=== PATIENT | female | born 1975 | race Caucasian/White ===

== ENCOUNTER → 2020-11-16 16:25 | Outpatient (CLI) | payer OTHER, SELFPAY ==
--- NOTE | ~2020-11-16 | MM_ITS ---
EXAMINATION: MM screening [facility] BI w antonio HISTORY: Screening mammogram TECHNIQUE: Craniocaudal and mediolateral oblique 3-D tomosynthesis images were obtained and synthetic 2-D images were generated. CAD analysis was submitted and interpreted. COMPARISON: 10/21/2019, 09/03/2018, 08/07/2017 bilateral digital screening mammogram examinations BREAST PARENCHYMAL COMPOSITION: The breasts are heterogeneously dense, which may obscure small masses . FINDINGS: Occasional benign punctate microcalcifications. There is no evidence of suspicious mass, ca lcification, or architectural distortion to suggest malignancy in either breast. There has been no tyler spicious interval change. IMPRESSION: 1. No mammographic evidence of malignancy. 2. Recommend routine screening mammography in one year. BI-RADS Category 2: Benign finding(s). Reviewed, dictated and finalized at location A. N SERVICE AGENT
== END ==
PROVIDERS: PCP Pediatrics; Visit Provider Obstetrics & Gynecology
DX: Z12.31 Encounter for screening mammogram for malignant neoplasm of breast (principal)
CPT/HCPCS: 77063; 77067

== ENCOUNTER → 2021-06-28 17:20 | Outpatient (CLI) | payer OTHER, SELFPAY ==
--- NOTE | ~2021-06-28 | XR_ITS ---
XR thoracic spine 3V DATE: 06/28/2021 18:53 INDICATION: Back pain TECHNIQUE: Standing AP, lateral and swimmer views COMPARISON: None FINDINGS: There is mild mid thoracic dextroscoliosis and mild lower thoracic levoscoliosis. There is mild degenerative spurring of the thoracic spine. No fracture or dislocation or bone destruction. The thoracic pedicles are intact. No paraspinal soft tissue thickening. IMPRESSION: Mild scoliosis and degenerative spurring Reviewed, dictated and finalized at location B.
--- NOTE | ~2021-06-28 | XR_ITS ---
XR lumbar spine 2-3V DATE: 06/28/2021 18:53 INDICATION: Low back pain TECHNIQUE: Standing AP, lateral, coned lateral lumbosacral views COMPARISON: None FINDINGS: There is minimal anterolisthesis at L4-5 due to degenerative change at the apophyseal joint s. Otherwise the lumbar vertebrae are normally aligned. No fracture or bone destruction. The lumbar pedi cles are intact. There is mild degenerative spurring of the lumbar spine. Lumbar an lumbosacral interspaces are relati vely preserved. The sacroiliac joints are intact. IMPRESSION: Grade 1 anterolisthesis at L4-5 due to degenerative change at the apophyseal joints Mild degenerative spurring of the lumbar spine Reviewed, dictated and finalized at location B. IMPRESSION: Grade 1 anterolisthesis at L4-5 due to degenerative change at the a pophyseal joints Mild degenerative spurring of the lumbar spine
== END ==
PROVIDERS: PCP Nurse Practitioner Family; Visit Provider Nurse Practitioner Family
DX: M54.5 Low back pain (principal); M41.9 Scoliosis, unspecified
CPT/HCPCS: 72072; 72100

== ENCOUNTER 2021-09-09 08:15 | Outpatient (CLI) | payer OTHER, SELFPAY ==
[2021-09-09 08:57] LABS: Basophils Absolute Auto 0.1 K/mm3 (0.0-0.1); Basophils Percent Auto 1.2 % (0.2-1.2); Eosinophils Absolute Auto 0.3 K/mm3 (0-0.3); Eosinophils Percent Auto 3.9 % (0-4.4); Hematocrit 42.1 % (37.0-47.0); Hemoglobin 13.9 g/dL (12.0-15.0); Immature Granulocyte Absolute 0.03 K/mm3 (0.00-0.031); Immature Granulocyte Percent A 0.4 % (0-0.5); Lymphocytes Absolute Auto 1.53 K/mm3 (0.9-3.2); Lymphocytes Percent Auto 22.1 % (18.3-44.2); Mean Corpuscular Hemoglobin 31.1 pg (26-34); Mean Corpuscular Volume 94.2 fl (80-100); Mean Platelet Volume 9.8 fl (7.4-10.4); Monocytes Absolute Auto 0.6 K/mm3 (0.1-0.6); Monocytes Percent Auto 8.2 % (2.6-8.5); Neutrophils Absolute Auto 4.5 K/mm3 (1.3-6.7); Neutrophils Percent Auto 64.2 % (45.5-73.1); Platelet Count Result 244 k/mm3 (150-375); Red Blood Count 4.47 M/mm3 (4.2-5.4); Red Cell Distribution Width 13.5 % (11.5-14.5); White Blood Count 6.9 K/mm3 (4.5-10.0)
== END 2021-09-09 08:16 | disposition home or self-care (01) ==
LOC: ANHSURGERY 08:19
PROVIDERS: PCP Pediatrics; Visit Provider Obstetrics & Gynecology
DX: D21.9 Benign neoplasm of connective and other soft tissue, unspecified (principal); Z01.818 Encounter for other preprocedural examination
CPT/HCPCS: 36415; 85025; 86850; 86900; 86901

== ENCOUNTER 2021-09-13 01:02 | Day surgery (SDC) | payer OTHER, SELFPAY ==
[2021-09-05 14:46] VITALS: BMI 26.6
--- NOTE | 2021-09-10 07:41 | PM.IMHP ---
H&P: HPI History of Present Illness Date/Time: 09/10/21 07:41 This 46-year-old multiparous patient admitted for robotic total hysterectomy left salpingo-oophorectomy as as DVT she has uterus uterine fibroids heavy bleeding stress urinary incontinence all refractory to medical therapy risks and benefits reviewed including not exclusive of , aspiration pneumonia bleeding, transfusion, perforation injury to bowel, bladder, ureters, or other internal organs with need for open laparotomy. She received the ACOG handout entitled hysterectomy as well as individually handout. She received the TVT and down. She had all questions answered and asked proceeded Chief Complaint: Enlarged uterus/bleeding/stress urinary incontinence Review of Systems Review of Systems: All systems reviewed & are unremarkable except as noted in HPI and below PMFSH Family History Family History (System 09/20/20 @ 12:13 by Danielle Peters) Other Family history of arthritis Family history of cardiovascular disease Hypertension Social History Social History (System 09/20/20 @ 12:13 by Danielle Peters) Smoking packs per day: 0.5 Smoking cigarettes per day: 10.0 Years smoked: 10 Smoking pack-years: 5.00 Smoking status: Former smoker Tobacco type: cigarettes and e-cigarettes/vaping Smoking end date: 11/30/10 Additional smoking assessment comments: NO LONGER SMOKES CIGARETTES, CURRENTLY VAPES Alcohol intake: current Drinks per week: 1 Substance use: never Substance use type: does not use Spiritual care concerns: No Meds Home Medications and Allergies Home Medications Medication Instructions Recorded Confirmed Type alprazolam 0.25 mg PO PRN PRN 09/05/21 09/05/21 History cholecalciferol (vitamin D3) 125 mcg PO DAILY 09/05/21 09/05/21 History [Vitamin D3] escitalopram oxalate 20 mg PO DAILY 09/05/21 09/05/21 History omeprazole 40 mg PO DAILY 09/05/21 09/05/21 History spironolactone 25 mg PO DAILY 09/05/21 09/05/21 History Allergies Allergy/AdvReac Type Severity Reaction Status Date / Time Penicillins AdvReac Severe GI UPSET-- Unverified 09/05/21 15:08 acetaminophen AdvReac Unknown Gastrointestinal Verified 09/05/21 15:08 [From Darvocet-N] Upset amoxicillin [From Augmentin] AdvReac Unknown Gastrointestinal Verified 09/05/21 15:08 Upset clavulanic acid AdvReac Unknown Gastrointestinal Verified 09/05/21 15:08 [From Augmentin] Upset hydrocodone AdvReac Unknown Gastrointestinal Unverified 09/05/21 15:08 Upset propoxyphene AdvReac Unknown Gastrointestinal Verified 09/05/21 15:08 [From Darvocet-N] Upset BETA LACTAMASE IN AdvReac Unknown Gastrointestinal Uncoded 09/05/21 15:08 Upset Exam Const: General: no acute distress Eyes: General: appearance normal, both eyes and all related structures Neck: Neck: supple and no JVD Thyroid: thyroid normal Resp: Effort & Inspection: normal respiratory effort Auscultation: clear to auscultation bilaterally Cardio: Rate: regular rate Rhythm: regular rhythm GI: Inspection: non-distended GI Palp: Yes Soft to palpation, No Tenderness to palpation present (GI) and No Guarding due to palpation present (GI) Auscultation: normal bowel sounds : Speculum Exam - Vagina: normal appearance of the vagina Speculum Exam - Cervix: normal appearance of the cervix and Cervical os closed Bimanual exam- vagina & uterus: enlarged Skin: General skin exam: no rashes or lesions noted Extrem: General: normal to inspection and no edema Psych: Mental Status: mental status grossly normal Affect: normal affect Assessment and Plan Additional Plan Impression: Enlarged uterus, bleeding, stress urinary incontinence Plan: Robotic total vaginal hysterectomy left salpingo-oophorectomy and tension-free vaginal tape
[2021-09-13] VITALS (9 sets, daily range): BP systolic 91–112; BP diastolic 47–63; PULSE 58–99; RESP 16–22; TEMP 36.2–37; O2SAT 93–100
[2021-09-13] MEDS: LACTATED RINGERS 1,000 ML 30 ML IV CONT ×3 (06:50→10:07)
[2021-09-13] MEDS: KETOROLAC 15 MG/ML VIAL (*BKC) IV PUSH (06:57)
[2021-09-13] MEDS: ACETAMINOPHEN 500 MG TABLET 1000 MG PO (06:57)
--- NOTE | 2021-09-13 07:06 | WPDANESEPPF ---
Anes - Initial Pre Proc Eval Procedure: Operation Date: 09/13/21 07:30 Proposed Procedures p Robotic Assisted Total Vaginal Hysterectomy, Left Salpingo-Oophorectomy - Wiliam Wakefield MD s Tension Free Vaginal Taping - Wiliam Wakefield MD Date/Time: 09/13/21 07:06 Surgeon: Wiliam Wakefield MD Pre Op Diagnosis: enlarge uterus, fibroids, heavy bleeding, JANEL Patient Data Age: 46 Gender: F Height: 1.7 m Weight: 77.1 kg Allergies Allergy/AdvReac Type Severity Reaction Status Date / Time Penicillins AdvReac Severe GI UPSET-- Unverified 09/05/21 15:08 amoxicillin [From Augmentin] AdvReac Unknown Gastrointestinal Verified 09/05/21 15:08 Upset clavulanic acid AdvReac Unknown Gastrointestinal Verified 09/05/21 15:08 [From Augmentin] Upset propoxyphene AdvReac Unknown Gastrointestinal Verified 09/05/21 15:08 [From Darvocet-N] Upset BETA LACTAMASE IN AdvReac Unknown Gastrointestinal Uncoded 09/05/21 15:08 Upset Home Medications Medication Instructions Recorded Confirmed Type alprazolam 0.25 mg PO PRN PRN 09/05/21 09/13/21 History cholecalciferol (vitamin D3) 125 mcg PO DAILY 09/05/21 09/13/21 History [Vitamin D3] escitalopram oxalate 20 mg PO DAILY 09/05/21 09/13/21 History omeprazole 40 mg PO DAILY 09/05/21 09/13/21 History spironolactone 25 mg PO DAILY 09/05/21 09/13/21 History Patient hx anesthesia problems: none Family hx anesthesia problems: none Results Review: All pre-operative results and documents have been reviewed as part of the pre-operative evaluation. [facility] Past Medical History Medical History Anxiety Family History Family History Other Family history of arthritis Family history of cardiovascular disease Hypertension Social History Social History Smoking packs per day: 0.5 Smoking cigarettes per day: 10.0 Years smoked: 10 Smoking pack-years: 5.00 Smoking status: Former smoker Tobacco type: cigarettes and e-cigarettes/vaping Smoking end date: 11/30/10 Additional smoking assessment comments: NO LONGER SMOKES CIGARETTES, CURRENTLY VAPES Alcohol intake: current Drinks per week: 1 Substance use: never Substance use type: does not use Living arrangements: with family Spiritual care concerns: No Anes - Eval Final PreProcedure Day of Procedure 09/13/21 07:06 Patient weight: overweight Heart: regular rate and rhythm Lungs: clear to auscultation Airway: Mallampati scale class II and special considerations poor dentition Neurological: alert and oriented Last oral intake: >/= 8 hours ASA classification: II Emergent: no Anesthetic plan: proceed Anesthesia type and monitoring: general ETT and standard monitoring Results Review: All pre-operative results and documents have been reviewed as part of the pre-operative evaluation. Informed Consent: The patient's anesthetic plan and its attendant risks and benefits were discussed with the patient/family/POA. Questions were solicited and answers provided to the satisfaction of the patient/family/POA.
--- NOTE | 2021-09-13 07:08 | WPDHPUPDATE1 ---
History and Physical Update Update Date/Time: 09/13/21 07:08 History and Physical has been reviewed, including an updated exam of the patient. There are NO changes in the patient's condition. Risks, benefits, and alternatives have been discussed and questions answered. Patient agrees to proceed with procedure.
[2021-09-13] MEDS: SCOPOLAMINE 1.5 MG PATCH TRANSDERM (07:17)
[2021-09-13] MEDS: ceFAZolin 2 GM/D5W 50 ML 2 GM/50 ML BAG IVPB (07:30)
--- NOTE | 2021-09-13 09:35 | W.PM.PROC2 ---
Procedure Note - Detailed Date of Procedure 09/13/21 Pre-op Diagnosis enlarge uterus, fibroids, heavy bleeding, JANEL Post-op Diagnosis same Procedure Performed Robotic total vaginal hysterectomy/right salpingectomy/extensive lysis of adhesions/cystoscopy/tVT Surgeon Wiliam Wakefield MD Anesthesia general Indications This 46-year-old female with stress urinary incontinence and bleeding and pain Findings Mildly enlarged uterus. Theleft ovary and tube were surgically absent. Multiple adhesions were seen from the omentum to the anterior abdominal wall over the uterus bladder and left adnexa accounting for what a was called a complex left ovarian cyst. The right ovary and tube appeared benign there was this small thin-walled cyst on the right ovary which was drained of clear fluid. Description of Procedure The patient was prepped draped normal sterile fashion placed in the dorsal lithotomy position. Under excellent general trach anesthesia weighted speculum placed in posterior fornix vagina. Anterior lip of the cervix grasped with single-tooth tenaculum and the uterus sounded to 10cm. Serial dilatation with fragmented dilators performed by passage of the 10. VINCENZO and the 3. Three cold cup. Next an 18 Irish catheter was placed in the bladder and drained of clear urine. The weighted speculum was removed the gloves were changed. A supraumbilical incision made Veress needle passed in the abdomen. The abdomen filled with CO2 gas [id number]. The 8mm trocar advanced in the abdomen. The downside visualized no injury seen. The gas reattached in the right and left lateral quadrant incisions made. The 8mm trocars advanced under direct visualization assuring no injury. Right upper quadrant incision made the 10mm trocar advanced under direct visualization assuring no injury. Multiple adhesions were seen in the robot was docked. Attention was turned to the console. The adhesions anteriorly were sharply dissected using monopolar and bipolar cautery until the uterus could be seen. There were still omental adhesions docked anterior to the bladder and these were sharply dissected carefully. The bladder was adherent to the fundal surface of the uterus and this was dissected layer by layer until it was brought well away from the dissecting field. The left ovary and tube were surgically absent. The right round ligament was grasped, burned, cut. And a good bladder flap formed by dissecting the peritoneum and reflecting the bladder caudally away from the cervix and uterus. The left ovary and tube were surgically absent as noted. The right ovary had a small follicular cyst in this was drained of clear fluid and defervesced to normal size. The right fallopian tube was then sharply dissected away from the ovary and passed through the upper port. The ovary on the right was was spared by sharp and clamping burning and cutting the utero-ovarian ligament and bringing this to the previously cut round ligament. The cardinal broad ligaments on the left were then serially skeletonized. These were clamped, burned, cut brought down the lateral edge of the uterus. In like fashion the cardinal and broad ligaments on the right were serially clamped, burned, cut and brought down the lateral edge of the uterus. When the vet vessels could be seen on each side the left vessels were clamped, burned, cut. This was repeated on the contralateral side with the vessels being clamped, burned, cut. Blanching the uterus was seen and a colpotomy incision was then made. The cervix uterus right fallopian tube removed through the vagina. The vagina was then closed with continuous running 0V lock from lateral edge to lateral edge. Hemostasis was assured and Bryson term was placed on the raw surface area. Hemostasis was assured. The robot was undocked. The gas removed from the abdomen. The trocars removed and the incisions closed with 4-0 Monocryl and glue. Attention was turned to the va
[2021-09-13] MEDS: fentaNYL CITRATE INJ (*CRX) 100 MCG/2 ML VIAL 25 MCG IV PUSH ×4 (10:01→10:16)
--- NOTE | 2021-09-13 10:50 | PC.NURSE ---
This patient, Toyin Valladares, was received from PACU per hospital bed on 09/13/21 at 1050. Patient oriented to unit policies and routines
[2021-09-13] MEDS: DEXTROSE 5%/LACTATED RINGERS 1,000 ML 125 ML IV CONT (11:46)
[2021-09-13] MEDS: KETOROLAC 30 MG/ML VIAL (*BKC) IV PUSH ×2 (11:47→17:18)
[2021-09-13] MEDS: HYDROcodone/acetaminophen (*CRX) 5-325 MG TABLET 1 TAB PO (17:18)
[2021-09-13] MEDS: SIMETHICONE 80 MG TAB.CHEW PO (17:19)
[2021-09-13] MEDS: DOCUSATE SODIUM 100 MG CAPSULE PO (17:19)
[2021-09-13] MEDS: IBUPROFEN 600 MG TABLET PO (23:48)
[2021-09-13] MEDS: HYDROcodone/acetaminophen (*CRX) 10-325 MG TABLET 1 TAB PO (23:49)
[2021-09-14] VITALS: BP 97/52; PULSE 66; RESP 18; TEMP 36.6; O2SAT 97
[2021-09-14 04:20] VITALS: BP 90/46; PULSE 62; RESP 16; TEMP 37.1; O2SAT 98
[2021-09-14 05:21] LABS: Basophils Percent Auto 0.4 % (0.2-1.2); Eosinophils Percent Auto 0.2 % (0-4.4); Hematocrit 31.7 % (37.0-47.0); Hemoglobin 10.6 g/dL (12.0-15.0); Immature Granulocyte Absolute 0.03 K/mm3 (0.00-0.031); Immature Granulocyte Percent A 0.4 % (0-0.5); Lymphocytes Absolute Auto 1.59 K/mm3 (0.9-3.2); Lymphocytes Percent Auto 18.6 % (18.3-44.2); Mean Corpuscular HGB Conc 33.4 g/dl (32-36); Mean Corpuscular Hemoglobin 30.8 pg (26-34); Mean Corpuscular Volume 92.2 fl (80-100); Mean Platelet Volume 9.8 fl (7.4-10.4); Monocytes Absolute Auto 0.5 K/mm3 (0.1-0.6); Monocytes Percent Auto 6.3 % (2.6-8.5); Neutrophils Absolute Auto 6.3 K/mm3 (1.3-6.7); Neutrophils Percent Auto 74.1 % (45.5-73.1); Platelet Count Result 219 k/mm3 (150-375); Red Blood Count 3.44 M/mm3 (4.2-5.4); Red Cell Distribution Width 13.1 % (11.5-14.5); White Blood Count 8.6 K/mm3 (4.5-10.0)
[2021-09-14 09:00] VITALS: BP 102/49; PULSE 54; RESP 16; TEMP 36.9; O2SAT 97
[2021-09-14] MEDS: IBUPROFEN 600 MG TABLET PO (09:09)
[2021-09-14] MEDS: HYDROcodone/acetaminophen (*CRX) 5-325 MG TABLET 1 TAB PO (09:10)
[2021-09-14] MEDS: SIMETHICONE 80 MG TAB.CHEW PO (09:11)
[2021-09-14] MEDS: DOCUSATE SODIUM 100 MG CAPSULE PO (09:11)
[2021-09-14] MEDS: ENOXAPARIN 40 MG/0.4 ML SYRINGE SUB-Q (09:12)
--- NOTE | 2021-09-14 10:31 | PM.GYNPNOP ---
LICENSED STAFF MFT - A/P Postoperative Procedures: Procedures Operation Date: 09/13/21 07:30 Actual Procedure Side Surgeon p Robotic Assisted Total Vaginal Hysterectomy, Right Salpingectomy Right Wiliam Wakefield MD s Tension Free Vaginal Taping Wiliam Wakefield MD A: POD#1, doing well. P: Home to f/u 2 weeks. Time Spent With Patient Time with patient: less than 15 minutes LICENSED STAFF MFT- PN:Subj Post-Op Subjective Date/time seen: 09/14/21 10:31 Interval history: Pain OK. Tolerating diet. Voiding. Would like to go home. Exam Narrative: AVSS I/O OK ABD soft, nontender. Incisions c/d/i. EXT nontender LICENSED STAFF MFT - PN: Obj Data Vital Signs Vital Signs: Vital Signs - 24 hr 09/13/21 10:40 09/13/21 11:00 09/13/21 17:00 Temperature 36.5 C 36.4 C 37.0 C Pulse Rate 79 69 78 Respiratory Rate 18 16 18 Blood Pressure 101/63 105/52 L 110/56 L Pulse Oximetry 93 09/13/21 20:13 09/14/21 00:00 09/14/21 04:20 Temperature 36.6 C 36.6 C 37.1 C Pulse Rate 64 66 62 Respiratory Rate 18 18 16 Blood Pressure 101/59 L 97/52 L 90/46 L Pulse Oximetry 99 97 98 09/14/21 09:00 Temperature 36.9 C Pulse Rate 54 L Respiratory Rate 16 Blood Pressure 102/49 L Pulse Oximetry 97 Intake/Output Intake/Output: Intake & Output 09/11/21 09/12/21 09/13/21 09/14/21 23:59 23:59 23:59 23:59 Intake Total 1700 700 Output Total 1150 850 Balance 550 -150 Meds/Results Medications: Active Medications Generic Name Dose Route Start Last Admin Trade Name Freq PRN Reason Stop Dose Admin Hydrocodone Bitart/Acetaminophen 1 tab 09/13/21 10:43 09/14/21 09:10 Hydrocodone/Acetaminophen (*Crx) 5-325 Mg Tablet PO 1 tab Q3H PRN Administration Pain Rated 5 or Less Hydrocodone Bitart/Acetaminophen 1 tab 09/13/21 10:43 09/13/21 23:49 Hydrocodone/Acetaminophen (*Crx) 10-325 Mg Tablet PO 1 tab Q3H PRN Administration Pain Rated 6 or Greater Docusate Sodium 100 mg 09/13/21 17:00 09/14/21 09:11 Docusate Sodium 100 Mg Capsule PO 100 mg BID NISHA Administration Enoxaparin Sodium 40 mg 09/14/21 09:00 09/14/21 09:12 Enoxaparin 40 Mg/0.4 Ml Syringe SUB-Q 40 mg DAILY NISHA Administration Dextrose/Lactated Ringer's 1,000 mls @ 125 mls/hr 09/13/21 10:43 09/13/21 11:46 Dextrose 5%/Lactated Ringers IV CONT 125 mls/hr .Q8H NISHA Administration Ibuprofen 600 mg 09/13/21 10:43 09/14/21 09:09 Ibuprofen 600 Mg Tablet PO 600 mg Q6H PRN Administration Cramping Ketorolac Tromethamine 30 mg 09/13/21 10:43 09/13/21 17:18 Ketorolac 30 Mg/Ml Vial (*Bkc) IV PUSH 09/18/21 10:42 30 mg Q6H PRN Administration Pain Rated 4-6 Naloxone HCl 0.1 mg 09/13/21 10:43 Naloxone Hcl 0.4 Mg/Ml Vial IV PUSH Q2M PRN Respiratory rate less than 10 Ondansetron HCl 4 mg 09/13/21 10:43 Ondansetron Inj 4 Mg/2 Ml Vial IV PUSH Q6H PRN Nausea And Vomiting Simethicone 80 mg 09/13/21 10:43 09/14/21 09:11 Simethicone 80 Mg Tab.Chew PO 80 mg Q2H PRN Administration Gas Labs CBC & Chem 7: 09/14/21 04:12 Labs: Laboratory Results - last 24 hr 09/14/21 04:12 WBC 8.6 RBC 3.44 L Hgb 10.6 L D Hct 31.7 L MCV 92.2 MCH 30.8 MCHC 33.4 RDW 13.1 Plt Count 219 MPV 9.8 Immature Gran % (Auto) 0.4 Neut % (Auto) 74.1 H Lymph % (Auto) 18.6 [place] % (Auto) 6.3 Eos % (Auto) 0.2 Baso % (Auto) 0.4 Lymph # (Auto) 1.59 [place] # (Auto) 0.5 Eos # (Auto) 0.0 Baso # (Auto) 0.0 Abs Immat Gran (auto) 0.03 Absolute Neuts (auto) 6.3 Absolute Nucleated RBC 0.0 Nucleated RBC % 0.0
== END 2021-09-14 11:52 | disposition home or self-care (01) ==
LOC: ANHSURGERY 07:09 → ANHOB2 10:47
PROVIDERS: PCP Pediatrics; Visit Provider Obstetrics & Gynecology
PROC: (CPT 57288; principal; 2021-09-13 07:30)
PROC: 0TSD0ZZ Reposition Urethra, Open Approach (ICD-10-PCS; CPT 57288; 2021-09-13 07:30)
DX: N85.2 Hypertrophy of uterus (principal); N83.201 Unspecified ovarian cyst, right side; N73.6 Female pelvic peritoneal adhesions (postinfective); N83.8 Other noninflammatory disorders of ovary, fallopian tube and broad ligament; N39.3 Stress incontinence (female) (male); N93.9 Abnormal uterine and vaginal bleeding, unspecified; F17.290 Nicotine dependence, other tobacco product, uncomplicated; F41.9 Anxiety disorder, unspecified
CPT/HCPCS: 57288; 58552; 58662; S2900; 36415; 85025; 86850; 86900; 86901; 88307; 99199; A9270; C1771; J0330; J0690; J1100; J1170; J1650; J1885; J2250; J2370; J2405; J2704; J2710; J3010; J7030; J7120; J7121

== ENCOUNTER → 2021-11-20 09:48 | Outpatient (CLI) | payer OTHER, SELFPAY ==
--- NOTE | ~2021-11-20 | MM_ITS ---
EXAMINATION: MM screening [facility] BI w antonio HISTORY: Screening mammogram TECHNIQUE: Craniocaudal and mediolateral oblique 3-D tomosynthesis images were obtained and synthetic 2-D images were generated. CAD analysis was submitted and interpreted. COMPARISON: 11/16/2020, 10/21/2019, 09/03/2018 BREAST PARENCHYMAL COMPOSITION: The breasts are heterogeneously dense, which may obscure small masses . FINDINGS: There is no evidence of suspicious mass, calcification, or architectural distortion to sugg est malignancy in either breast. There has been no suspicious interval change. IMPRESSION: 1. No mammographic evidence of malignancy. 2. Recommend routine screening mammography in one year. BI-RADS Category 1: Negative Reviewed, dictated and finalized at location A. S SELECTOR
== END ==
PROVIDERS: PCP Pediatrics; Visit Provider Obstetrics & Gynecology
DX: Z12.31 Encounter for screening mammogram for malignant neoplasm of breast (principal)
CPT/HCPCS: 77063; 77067

== ENCOUNTER → 2022-03-05 14:39 | Outpatient (CLI) | payer OTHER, SELFPAY ==
--- NOTE | ~2022-03-05 | XR_ITS ---
EXAMINATION: XR chest 2V DATE: 03/05/2022 14:53 INDICATION: Pneumonia and wheezing TECHNIQUE: PA and lateral views of the chest were obtained. COMPARISON: Chest radiograph dated 04/02/2017 FINDINGS: Small calcified nodule near the left costophrenic angle consistent with old granulomatous disease. Bell ngs are otherwise clear with no other airspace opacities, pulmonary edema, pleural effusion or pneumo thorax. The cardiomediastinal silhouette is normal. Mild lower thoracic kyphosis with mild to moderat e spondylosis IMPRESSION: 1. No acute cardiopulmonary disease. Reviewed, dictated and finalized at location B.
== END ==
PROVIDERS: PCP Pediatrics; Visit Provider Pediatrics
DX: R06.2 Wheezing (principal); J18.9 Pneumonia, unspecified organism
CPT/HCPCS: 71046

== ENCOUNTER → 2023-02-24 14:45 | Outpatient (CLI) | payer OTHER, SELFPAY ==
--- NOTE | ~2023-02-24 | MM_ITS ---
EXAMINATION: MM screening [facility] BI w antonio HISTORY: Screening TECHNIQUE: Craniocaudal and mediolateral oblique 3-D tomosynthesis images were obtained and synthetic 2-D images were generated. CAD analysis was submitted and interpreted. COMPARISON: Comparison to multiple prior studies sequentially, with oldest reviewed study dated 08/30. BREAST PARENCHYMAL COMPOSITION: The breasts are heterogeneously dense, which may obscure small masses . FINDINGS: There is possible architectural distortion laterally in the right breast on CC view. There is a possible obscured mass in the left breast. There are no suspicious calcifications. IMPRESSION: 1. Possible architectural distortion of the right breast and possible mass in the outer aspect of the left breast. 2. Additional mammographic views and possible breast ultrasound are recommended. BI-RADS Category 0: Incomplete: Needs additional imaging evaluation. Reviewed, dictated and finalized at location A. IMPRESSION: 1. Possible architectural distortion of the right breast and possible mass in t he outer aspect of the left breast. 2. Additional mammographic views and possible breast ultrasound are recommended . BI-RADS Category 0: Incomplete: Needs additional imaging evaluation.
== END ==
PROVIDERS: PCP Pediatrics; Visit Provider Obstetrics & Gynecology
DX: Z12.31 Encounter for screening mammogram for malignant neoplasm of breast (principal); R92.8 Other abnormal and inconclusive findings on diagnostic imaging of breast
CPT/HCPCS: 77063; 77067

== ENCOUNTER → 2023-03-04 08:34 | Outpatient (CLI) | payer OTHER, SELFPAY ==
--- NOTE | ~2023-03-04 | MMUS_ITS ---
EXAMINATION: MM diagnostic [facility] BI w antonio, US breast BI complete HISTORY: Possible architectural distortion reported in the lateral right breast on screening cranioca udal view of 02/24/2023. Possible obscured mass in the left breast was reported as well. TECHNIQUE: Additional 3-D tomosynthesis images of both breasts were performed and synthetic 2-D image s were generated. CAD analysis was submitted and interpreted. High resolution complete bilateral gaby st ultrasound examination including all 4 quadrants and subareolar areas was performed. COMPARISON: 02/24/2023 bilateral screening mammogram FINDINGS: MAMMOGRAPHIC FINDINGS: No suspicious mass or architectural distortion, malignant calcification, skin thickening or retractio n or significant new or developing density is detected. ULTRASOUND: Right breast: 1:00 6 cm from nipple: Parallel circumscribed 3.3 x 5.6 mm probable small intramammary lymph node or other benign process, without posterior shadowing 8:00 6 cm from nipple: 2.5 x 3.5 x 3.9 mm circumscribed hypoechoic lesion without internal vascularit y can with through transmission, benign in appearance 9:00 6 cm from nipple: 2.1 x 3.9 x 5.9 mm cyst Left breast: 1:00 3 cm from nipple: Parallel circumscribed benign appearing probable lymph node measuring 3.2 x 8. 8 x 7.5 mm, without internal vascularity or posterior shadowing 3:00 7 cm from nipple: 1.4 x 4.5 x 3.9 mm cyst or other benign process 8:00 2 cm from nipple: 3.4 x 2.6 x 3.8 mm parallel hypoechoic lesion without internal vascularity or posterior shadowing, probably benign. Six-month targeted left breast ultrasound follow-up is recommen ded 11:00 2 cm from nipple: Parallel circumscribed hypoechoic 6.5 x 18.7 x 17.3 mm lesion with through tr ansmission, posterior enhancement and without internal vascularity, likely benign IMPRESSION: 1. Probably benign findings 2. 6 month targeted left breast ultrasound follow-up at 8:00 2 cm from nipple at 11:00 2 cm from nipp le is recommended BI-RADS category 3, probably benign findings. Reviewed, dictated and finalized at location A. IMPRESSION: 1. Probably benign findings 2. 6 month targeted left breast ultrasound follow-up at 8:00 2 cm from nipple a t 11:00 2 cm from nipple is recommended BI-RADS category 3, probably benign findings.
== END ==
PROVIDERS: PCP Pediatrics; Visit Provider Obstetrics & Gynecology
DX: R92.8 Other abnormal and inconclusive findings on diagnostic imaging of breast (principal)
CPT/HCPCS: 76641; 77062; 77066; G0279

== ENCOUNTER 2024-09-10 10:04 | Outpatient (CLI) | payer OTHER, SELFPAY ==
--- NOTE | ~2024-09-10 | XR_ITS ---
EXAMINATION: XR scoliosis survey DATE: 09/10/2024 10:22 INDICATION: Scoliosis. Back pain. TECHNIQUE: Anteroposterior and lateral views of the entire spine standing were obtained. COMPARISON: None. FINDINGS: Left femoral head stands 5 mm higher than the right. There are 12 pairs of ribs. There are 5 nonrib-bearing lumbar segments. There is 6 degrees levocurvature from C6 to T6. There is 11 degrees dextroscoliosis from T6 to L1. There is severe spondylosis at C6-C7 and mild spondylosis at other le vels of the cervical, thoracic, and lumbar spine. IMPRESSION: 1. Scoliosis. 2. Severe spondylosis at C6-C7. Reviewed, dictated and finalized at location A.
== END 2024-09-10 10:05 | disposition home or self-care (01) ==
LOC: ANHIMG 10:06
PROVIDERS: PCP Pediatrics; Visit Provider Pediatrics
DX: M41.9 Scoliosis, unspecified (principal); M47.812 Spondylosis without myelopathy or radiculopathy, cervical region; Z72.0 Tobacco use
CPT/HCPCS: 72082

== ENCOUNTER 2024-10-20 10:19 | Outpatient (CLI) | payer OTHER, SELFPAY ==
--- NOTE | ~2024-10-20 | MR_ITS ---
EXAMINATION: MR thoracic spine wo con DATE: 10/20/2024 11:01 INDICATION: Back pain. Scoliosis. TECHNIQUE: Magnetic resonance imaging (MRI) of the thoracic spine was performed without intravenous c ontrast. Sagittal localizer T1-weighted FSE of the cervical spine was obtained. Thoracic spine sequen eulalio included sagittal T2-weighted FSE, sagittal T1-weighted FSE, sagittal T2-weighted FS FSE, and axi al T2-weighted FSE. COMPARISON: Radiographs 09/10/2024 FINDINGS: There is 9 degrees dextrocurvature of thoracic spine. There is mild chronic anterior wedgin g of T8, T10, and T11 vertebral bodies. There is mildly decreased disc height at T7-T8 and T10-T11. T here is multilevel facet joint osteoarthritis, severe in lower thoracic spine. On the right, there is mild neural foraminal stenosis at T8-T9 and T9-T10. On the left, there is mild neural foraminal sten osis at T6-T7, T7-T8, and T8-T9. At T3-T4, there is a right central protrusion with mild central aletha l stenosis. At T4-T5, there is a left central protrusion with mild central canal stenosis. At T5-T6, there is a left central protrusion with mild central canal stenosis. At T6-T7, there is a left centra l extrusion with mild central canal stenosis and ventral indentation of the spinal cord. At T7-T8, th ere is a left central extrusion with mild central canal stenosis. At T8-T9, the disc is bulging with mild central canal stenosis. At T10-T11, there is a left central extrusion with mild central canal st enosis and ventral indentation of the spinal cord. The spinal cord signal intensity is normal. The co nus medullaris is at L1. IMPRESSION: 1. Mild thoracic spondylosis. Reviewed, dictated and finalized at location A. [employer]
== END 2024-10-20 10:20 | disposition home or self-care (01) ==
LOC: GOSHIMG 10:23
PROVIDERS: PCP Pediatrics; Visit Provider Pediatrics
DX: M47.815 Spondylosis without myelopathy or radiculopathy, thoracolumbar region (principal); M41.9 Scoliosis, unspecified
CPT/HCPCS: 72146

== ENCOUNTER 2025-02-27 10:58 | Outpatient (CLI) | payer OTHER, SELFPAY ==
--- NOTE | ~2025-02-27 | XR_ITS ---
Right Hand Technique: PA, oblique, and lateral views were obtained. Clinical History: Paresthesia Findings: No acute fracture or dislocation is seen. Osseous alignment is anatomic. Joint spaces are p reserved. Soft tissues are unremarkable. Impression: Unremarkable right hand. Reviewed, dictated and finalized at location M. Impression: Unremarkable right hand.
--- NOTE | ~2025-02-27 | XR_ITS ---
EXAMINATION: XR hip LT min 2V, XR hip RT min 2V DATE: 02/27/2025 11:30 INDICATION: Low back pain TECHNIQUE: 1. Anteroposterior and frog-leg lateral views of the left hip were obtained. 2. Anteroposterior and frog-leg lateral views of the right hip were obtained. COMPARISON: None. FINDINGS: Alignment is normal at both hips. No fracture or suspected osteonecrosis. Mild bilateral hip and sacr oiliac osteoarthritis. No erosions. Mild lower lumbar spondylosis. Multiple phleboliths in the pelvis . IMPRESSION: 1. Mild bilateral hip and sacroiliac osteoarthritis and mild lower lumbar spondylosis. Reviewed, dictated and finalized at location B. IMPRESSION: 1. Mild bilateral hip and sacroiliac osteoarthritis and mild lower lumbar spond ylosis.
--- NOTE | ~2025-02-27 | XR_ITS ---
EXAMINATION: XR hand LT min 3V DATE: 02/27/2025 11:30 INDICATION: Hand paresthesias. TECHNIQUE: 1. Posteroanterior, oblique and lateral views of the left hand were obtained. 2. Posteroanterior, oblique and lateral views of the right hand were obtained. COMPARISON: None. FINDINGS: Alignment of both hands is normal. No acute fracture. Interval healing of a prior pathologic fracture at the neck of the left fifth metacarpal. Again seen is a mildly expansile lytic lesion within the h ead and neck the fifth metacarpal now with ring and arc-like central chondroid matrix consistent with an enchondroma. Relatively symmetric mild osteoarthritis at multiple predominantly distal interphala ngeal joints. No erosions to suggest inflammatory arthritis. IMPRESSION: 1. 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 2. Enchondroma at the head and neck of the left fifth metacarpal with interval healing in essentially anatomic alignment of the previously seen associated pathologic fracture. Reviewed, dictated and finalized at location B. IMPRESSION: 1. Mild polyarticular osteoarthritis at the bilateral distal interphalangeal beatrice ints. 2. Enchondroma at the head and neck of the left fifth metacarpal with interval healing in essentially anatomic alignment of the previously seen associated pat hologic fracture.
== END 2025-02-27 10:59 | disposition home or self-care (01) ==
PROVIDERS: PCP Pediatrics; Visit Provider Pediatrics
DX: R20.2 Paresthesia of skin (principal); M19.042 Primary osteoarthritis, left hand; M16.0 Bilateral primary osteoarthritis of hip; M53.3 Sacrococcygeal disorders, not elsewhere classified; M47.896 Other spondylosis, lumbar region
CPT/HCPCS: 73130; 73502

== ENCOUNTER 2025-03-01 14:21 | Outpatient (CLI) | payer OTHER, SELFPAY ==
--- NOTE | ~2025-03-01 | US_ITS ---
Thyroid ultrasound. Clinical History: Thyroid nodule Findings: Real-time sonography of the thyroid gland was performed. The right lobe measures 4.4 x 1.6 x 1.4 cm. The left lobe measures 3.4 x 1.9 x 1.3 cm. The isthmus is 4 mm in AP diameter. There is a 1.0 x 0.4 x 0.7 cm hypoechoic solid nodule at the isthmus, with circumscribed. Impression: 1.0 cm TR-4 nodule at the isthmus. Annual follow-up exam advised. Reviewed, dictated and finalized at location . Impression: 1.0 cm TR-4 nodule at the isthmus. Annual follow-up exam advised.
== END 2025-03-01 14:22 | disposition home or self-care (01) ==
LOC: MICIMG 14:21
PROVIDERS: PCP Pediatrics; Visit Provider Family Medicine
DX: E04.1 Nontoxic single thyroid nodule (principal)
CPT/HCPCS: 76536